=== PATIENT | female | born 1955 | race Caucasian/White ===

== ENCOUNTER 2018-04-22 20:29 | Emergency (ER) | payer BC ==
[~2018-04-22] VITALS: Ht 167.6 cm; Wt 65.8 kg
[~2018-04-22 20:29] MED LIST: ATOR40TA PO; Aspirin PO; FLUO40CA9 PO; IBUP200C9 PO; OMEG1CAP6 PO; SIMV10TA3 PO; WARF6TAB49 PO
[2018-04-22] MEDS ORDERED: IV NORMAL SALINE 1000ML BAG 1,000 ML IV SCH (21:00)
[2018-04-22 21:02] LABS: BASO # 0.1 x10^3/uL (0.0-0.2); BASO % 1 % (0-3); EOS # 0.1 x10^3/uL (0.0-0.7); EOS % 1 % (0-3); HEMATOCRIT 44.2 % (36.0-47.0); HEMOGLOBIN 14.8 g/dL (12.0-15.5); LYMPH # 3.9 x10^3/uL (1.0-4.8); LYMPH % 40 % (24-48); MEAN CORPUSCULAR HEMOGLOBIN 31 pg (25-35); MEAN CORPUSCULAR HGB CONC 34 g/dL (31-37); MEAN CORPUSCULAR VOLUME 93 fL (79-100); MONO # 0.8 x10^3/uL (0.0-1.1); MONO % 8 % (0-9); NEUT % 50 % (31-73); PLATELET COUNT 272 x10^3/uL (140-400); RED BLOOD COUNT 4.77 x10^6/uL (3.50-5.40); RED CELL DISTRIBUTION WIDTH 15.8 % (11.5-14.5); WHITE BLOOD COUNT 9.9 x10^3/uL (4.0-11.0)
[2018-04-22 21:12] LABS: CALCIUM 9.2 mg/dL (8.5-10.1); CREATININE 1.1 mg/dL (0.6-1.0)
[2018-04-22 21:17] LABS: ALBUMIN 3.4 g/dL (3.4-5.0); ALBUMIN/GLOBULIN RATIO 1.1 (1.0-1.7); MAGNESIUM 2.2 mg/dL (1.8-2.4); TOTAL BILIRUBIN 0.5 mg/dL (0.2-1.0); TOTAL PROTEIN 6.4 g/dL (6.4-8.2)
[2018-04-22 21:44] LABS: PROTHROMBIN TIME PATIENT 14.6 SEC (11.7-14.0)
--- NOTE | 2018-04-22 21:50 | RAD ---
PROCEDURE: PORTABLE CHEST 1V CLINICAL INDICATION: Chest pain today COMPARISON: None FINDINGS: No pneumothorax identified. Cardiac and mediastinal contours unremarkable. No pulmonary consolidation or acute airspace disease. No acute osseous abnormalities identified. IMPRESSION: No pulmonary consolidation or acute airspace disease. Electronically signed by: Dewayne Eagle DO (04/22/2018 9:47 PM) [facility]
[2018-04-22 22:00] VITALS: BP 104/58
[2018-04-22] MEDS ORDERED: METH4TAB2 PO (22:01)
--- NOTE | 2018-04-22 22:02 | PHYS DOC ---
Past Medical History Past Medical History: DVT, High Cholesterol Additional Past Medical Histor: pulmonary embolism Past Surgical History: Hysterectomy, Other Additional Past Surgical Histo: colon reconstruction multiple sx Alcohol Use: None Drug Use: None Adult General Chief Complaint Chief Complaint: ABNORMAL LABS [facility] HPI Patient is a 62-year-old female who presents with complaint of midsternal chest pain that started earlier this evening. She describes pain as sharp and stabbing in nature and rates pain as moderate. Patient states that she has history of pulmonary emboli and is on Coumadin. She states that she checked her INR level and found it was low so felt that she should come into the emergency room. Patient states that this is not like when she had pulmonary emboli in the past because the pain was more in her lungs and she felt pain in her back as well. She does indicate that the pain is worsened with deep breathing and with palpation. She denies any nausea, vomiting or diaphoresis. She also denies any lower extremity swelling or pain. Review of Systems Review of Systems Constitutional: Denies fever or chills [] Respiratory: Denies cough or shortness of breath [] Cardiovascular: No additional information not addressed in HPI [] GI: Denies abdominal pain, nausea, vomiting or diarrhea [] Neurologic: Denies headache, focal weakness or sensory changes [] All other systems were reviewed and found to be within normal limits, except as documented in this note. Current Medications Current Medications Current Medications Medications (Trade) Dose Ordered Sig/[facility] Start Time Stop Time Status Last Admin Dose Admin Sodium Chloride 1,000 ml @ 100 mls/hr Q10H 04/22/18 21:00 04/22/18 22:16 DC 04/22/18 21:02 100 MLS/HR Warfarin Sodium (Coumadin) 5 mg 1X ONCE 04/22/18 22:30 04/22/18 22:30 DC 04/22/18 22:11 5 MG Allergies Allergies Allergies Coded Allergies Type Severity Reaction Last Updated Verified No Known Drug Allergies 05/17/13 No Physical Exam Physical Exam Constitutional: Well developed, well nourished, no acute distress, non-toxic appearance. [] HENT: Normocephalic, atraumatic, bilateral external ears normal, oropharynx moist, no oral exudates, nose normal. [] Eyes: PERRLA, EOMI, conjunctiva normal, no discharge. [] Neck: Normal range of motion, no tenderness, supple, no stridor. [] Cardiovascular:Heart rate regular rhythm, no murmur [] Lungs & Thorax: Bilateral breath sounds clear to auscultation [] Abdomen: Bowel sounds normal, soft, no tenderness. [] Skin: Warm, dry, no erythema, no rash. [] Extremities: No tenderness, no cyanosis, no clubbing, ROM intact. [] Neurologic: Alert and oriented X 3, no focal deficits noted. [] Current Patient Data Vital Signs Vital Signs Date Time Temp Pulse Resp B/P (MAP) Pulse Ox O2 Delivery O2 Flow Rate FiO2 04/22/18 22:00 72 14 104/58 (73) 95 Room Air 04/22/18 20:30 98.1 98.1 Lab Values Laboratory Tests Test 04/22/18 20:45 White Blood Count 9.9 x10^3/uL (4.0-11.0) Red Blood Count 4.77 x10^6/uL (3.50-5.40) Hemoglobin 14.8 g/dL (12.0-15.5) Hematocrit 44.2 % (36.0-47.0) Mean Corpuscular Volume 93 fL (79-100) Mean Corpuscular Hemoglobin 31 pg (25-35) Mean Corpuscular Hemoglobin Concent 34 g/dL (31-37) Red Cell Distribution Width 15.8 % (11.5-14.5) H Platelet Count 272 x10^3/uL (140-400) Neutrophils (%) (Auto) 50 % (31-73) Lymphocytes (%) (Auto) 40 % (24-48) Monocytes (%) (Auto) 8 % (0-9) Eosinophils (%) (Auto) 1 % (0-3) Basophils (%) (Auto) 1 % (0-3) Neutrophils # (Auto) 5.0 x10^3uL (1.8-7.7) Lymphocytes # (Auto) 3.9 x10^3/uL (1.0-4.8) Monocytes # (Auto) 0.8 x10^3/uL (0.0-1.1) Eosinophils # (Auto) 0.1 x10^3/uL (0.0-0.7) Basophils # (Auto) 0.1 x10^3/uL (0.0-0.2) Prothrombin Time 14.6 SEC (11.7-14.0) H Prothrombin Time INR 1.2 (0.8-1.1) H D-Dimer (Beckie) < 0.27 ug/mlFEU Sodium Level 143 mmol/L (136-145) Potassium Level 4.0 mmol/L (3.5-5.1) Chloride Level 104 mmol/L (98-107) Carbon Dioxide Level 27 mmol/L (21-32) Anion Gap 12 (6-14) Blood Urea Nitrogen 19 mg/dL (7-20) Creatinine 1.1 mg/dL (0.6-1.0) H Estimated GFR (Cockcroft-Gault) 50.0 BUN/Creatinine Ratio 17 (6-20) Glucose Level 120 mg/dL (70-99) H Calcium Level 9.2 mg/dL (8.5-10.1) Magnesium Level 2.2 mg/dL (1.8-2.4) Total Bilirubin 0.5 mg/dL (0.2-1.0) Aspartate Amino Transferase (AST) 37 U/L (15-37) Alanine Aminotransferase (ALT) 30 U/L (14-59) Alkaline Phosphatase 83 U/L (46-116) Troponin I Quantitative < 0.017 ng/mL (0.000-0.055) XG-Qzh-R-Type Natriuretic Peptide 76 pg/mL (0-124) Total Protein 6.4 g/dL (6.4-8.2) Albumin 3.4 g/dL (3.4-5.0) Albumin/Globulin Ratio 1.1 (1.0-1.7) Laboratory Tests 04/22/18 20:45 Laboratory Tests 04/22/18 20:45 EKG EKG [] Interpretation Time: EKG demonstrates normal sinus rhythm with no ST segment abnormalities. Radiology/Procedures Radiology/Procedures [] Impressions: Chest x-ray demonstrates no acute process. Course & Med Decision Making Course & Med Decision Making Pertinent Labs and Imaging studies reviewed. (See chart for details) [] Dragon Disclaimer Dragon Disclaimer This electronic medical record was generated, in whole or in part, using a voice recognition dictation system. Departure Departure Impression: Primary Impression: Costochondritis Disposition: 01 HOME, SELF-CARE Condition: STABLE Referrals: KATHLEEN CHINCHILLA (PCP) Patient Instructions: Costochondritis Scripts Methylprednisolone (MEDROL) 4 Mg Tab.ds.pk 1 PKG PO UD, #1 PKG Prov: TRANG CHANDLER Jr. DO 04/22/18 TRANG CHANDLER Jr., DO Apr 22, 2018 22:01
[2018-04-22] MEDS ORDERED: WARFARIN 5 MG TABLET. PO ONE (22:30)
--- NOTE | 2018-04-23 06:48 | EKG ---
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
== END 2018-04-22 22:16 | disposition home or self-care (01) ==
LOC: ER 20:29
DX: M94.0 Chondrocostal junction syndrome [Tietze] (principal); M54.9 Dorsalgia, unspecified; E78.00 Pure hypercholesterolemia, unspecified; Z86.711 Personal history of pulmonary embolism; Z86.718 Personal history of other venous thrombosis and embolism; Z79.01 Long term (current) use of anticoagulants; Z90.710 Acquired absence of both cervix and uterus
CPT/HCPCS: 36415; 71045; 80053; 83735; 83880; 84484; 85025; 85379; 85610; 93005; 99284; J7030

== ENCOUNTER 2021-03-20 07:32 | Emergency (ER) | payer MEDICARE, OTHER ==
[~2021-03-20] VITALS: Ht 167.6 cm; Wt 72.7 kg
[2021-03-20 08:29] LABS: BASO # 0.1 x10^3/uL (0.0-0.2); BASO % 1 % (0-3); EOS # 0.1 x10^3/uL (0.0-0.7); EOS % 2 % (0-3); HEMATOCRIT 43.4 % (36.0-47.0); HEMOGLOBIN 14.8 g/dL (12.0-15.5); LYMPH # 1.8 x10^3/uL (1.0-4.8); LYMPH % 25 % (24-48); MEAN CORPUSCULAR HEMOGLOBIN 31 pg (25-35); MEAN CORPUSCULAR HGB CONC 34 g/dL (31-37); MEAN CORPUSCULAR VOLUME 91 fL (79-100); MONO # 0.6 x10^3/uL (0.0-1.1); MONO % 8 % (0-9); NEUT # 4.8 x10^3/uL (1.8-7.7); NEUT % 65 % (31-73); PLATELET COUNT 268 x10^3/uL (140-400); RED BLOOD COUNT 4.75 x10^6/uL (3.50-5.40); RED CELL DISTRIBUTION WIDTH 14.3 % (11.5-14.5); WHITE BLOOD COUNT 7.4 x10^3/uL (4.0-11.0)
[2021-03-20 08:36] LABS: CALCIUM 8.2 mg/dL (8.5-10.1); CREATININE 0.9 mg/dL (0.6-1.0); GFR 62.5; POTASSIUM 4.9 mmol/L (3.5-5.1)
[2021-03-20 08:37] LABS: PROTHROMBIN TIME PATIENT 20.2 SEC (11.7-14.0)
[2021-03-20 08:42] LABS: ALBUMIN 3.5 g/dL (3.4-5.0); TOTAL BILIRUBIN 0.4 mg/dL (0.2-1.0); TOTAL PROTEIN 7.1 g/dL (6.4-8.2)
[2021-03-20] MEDS: IOHEXOL 300 MG/ML 100ML VIAL. IV ONE (09:06)
--- NOTE | 2021-03-20 09:22 | RAD ---
EXAM: Head CT without contrast; chest and abdomen and pelvis CT with intravenous contrast. HISTORY: Fall. Anticoagulation. TECHNIQUE: Computed tomographic images of the head were obtained without contrast. Post contrast imag es of the chest, abdomen and pelvis were also obtained. *One or more of the following individualized dose reduction techniques were utilized for this examina tion: 1. Automated exposure control. 2. Adjustment of the mA and/or kV according to patient size. 3. Use of iterative reconstruction technique. COMPARISON: 11/12/2019. FINDINGS: Head: There is no intracranial hemorrhage. There is no mass effect or midline shift. There is no hydr ocephalus. There are subtle areas of decreased attenuation within the cerebral white matter, likely d ue to chronic small vessel disease in a patient of this age. The visualized orbits, paranasal sinuses and mastoid air cells are unremarkable. There is no suspicious calvarial lesion. Chest: The heart is upper normal in size. There is a dilated ascending aorta measuring 3.9 cm. There is calcified atherosclerotic plaque involving the coronary arteries. There is no mediastinal or hilar lymphadenopathy. There are multiple thyroid nodules. There is no pneumothorax or pleural effusion. T here is bilateral posterior dependent atelectasis. There is mild emphysema. There is no infiltrate or suspicious pulmonary nodule. There is no acute or suspicious osseous finding. There are a few osseou s hemangiomas, the largest of which is seen within T7. Abdomen and pelvis: No hepatic lesion is seen. The gallbladder, pancreas, spleen and adrenal glands a re unremarkable. There is a 7.6 cm simple cyst within the lower pole of the right kidney. There are f ew additional smaller simple appearing cysts within both kidneys. There is a 1.7 cm hypodense lesion within the lateral mid zone of the left kidney which demonstrate attenuation greater than would. Ther e is a similar-appearing 7 mm lesion within the lateral mid zone of the right kidney. These may be co mplicated cyst. There is a suspected 1.7 cm nodule along the posterior lower pole the left kidney. There is no bowel obstruction. There is no abnormal bowel wall thickening. There is evidence of parti al sigmoid resection. There is heavily calcified atherosclerotic plaque involving the aorta and iliac bifurcation. The bladder is unremarkable. The uterus is absent. The left ovary may be absent. The ri ght ovary is unremarkable. There is no lymphadenopathy. There are degenerative changes involving the spine. This is primarily at L4-L5. There is no acute osseous finding. IMPRESSION: 1. No acute intracranial finding or evidence of acute thoracic, abdominal or pelvic trauma. 2. Multiple renal cysts. There are superimposed small echogenic lesions within both kidneys which dem onstrate attenuation greater than simple fluid, possibly due to complicated cysts. There is also a bhandari spected 1.7 cm solid nodule along the posterior lower pole the left kidney, concerning for renal cell carcinoma. These lesions can be further assessed sonographically or with a renal protocol CT or MRI. 3. Mild pulmonary emphysema. 4. Ectatic ascending aorta measuring 3.9 cm. Electronically signed by: Esther Mensah MD (03/20/2021 9:19 AM) [id number]
--- NOTE | 2021-03-20 10:05 | PHYS DOC ---
Past Medical History Past Medical History: DVT, High Cholesterol Additional Past Medical Histor: pulmonary embolism Past Surgical History: Hysterectomy, Other Additional Past Surgical Histo: colon reconstruction multiple sx Smoking Status: Current Every Day Smoker Alcohol Use: None Drug Use: None General Adult EDM: Chief Complaint: RIB PAIN HPI: HPI: Patient is a 65 year old female with history of DVT/PE on warfarin who presents with a fall earlier this morning. Patient with climbing a stair into her bed when she slipped and fell wedging herself between her bed and her nightstand. She hit her right lower ribs on her nightstand. She does not believe that she struck her head. No loss of consciousness. No nausea/vomiting, confusion, or headache. Pain is mainly on the right lower ribs and is worse with deep breaths or movement. Denies any neck pain or upper extremity weakness/paresthesia. No back pain. Denies any injuries to her extremities. Review of Systems: Review of Systems: Constitutional: Denies fever or chills. [] Eyes: Denies change in visual acuity. [] HENT: Denies nasal congestion or sore throat. [] Respiratory: Denies cough or shortness of breath. [] Cardiovascular: Denies chest pain or edema. [] GI: Denies abdominal pain, nausea, vomiting, bloody stools or diarrhea. [] : Denies dysuria. [] Musculoskeletal: Reports right lower rib pain Integument: Denies rash. [] Neurologic: Denies headache, focal weakness or sensory changes. [] Endocrine: Denies polyuria or polydipsia. [] Lymphatic: Denies swollen glands. [] Psychiatric: Denies depression or anxiety. [] Heart Score: C/O Chest Pain: No Current Medications: Current Medications Medications (Trade) Dose Ordered Sig/Janet Start Time Stop Time Status Last Admin Dose Admin Iohexol (Omnipaque 300 Mg/ml) 75 ml 1X ONCE 03/20/21 08:45 03/20/21 08:46 DC 03/20/21 09:06 75 ML Allergies: Allergies: Allergies Coded Allergies Type Severity Reaction Last Updated Verified No Known Drug Allergies 05/17/13 No Physical Exam: PE: Constitutional: Well developed, well nourished, no acute distress, non-toxic appearance. [] HENT: Normocephalic, atraumatic Eyes: PERRLA, EOMI, conjunctiva normal, no discharge. [] Neck: Normal range of motion, no tenderness, supple, no stridor. [] Cardiovascular:Heart rate regular rhythm, no murmur [] Lungs & Thorax: Right lower rib tenderness to palpation. No crepitus or instability felt. There is overlying abrasion to the skin. Bilateral breath sounds clear to auscultation [] Abdomen: RUQ tenderness to palpation. Soft, no guarding, no rigidity. Skin: Warm, dry, no erythema, no rash. [] Back: No tenderness, no CVA tenderness. [] Extremities: No tenderness, no cyanosis, no clubbing, ROM intact, no edema. [] Neurologic: Alert and oriented X 3, normal motor function, normal sensory function, no focal deficits noted. [] Psychologic: Affect normal, judgement normal, mood normal. [] Current Patient Data: Labs: Laboratory Tests Test 03/20/21 08:15 White Blood Count 7.4 x10^3/uL (4.0-11.0) Red Blood Count 4.75 x10^6/uL (3.50-5.40) Hemoglobin 14.8 g/dL (12.0-15.5) Hematocrit 43.4 % (36.0-47.0) Mean Corpuscular Volume 91 fL (79-100) Mean Corpuscular Hemoglobin 31 pg (25-35) Mean Corpuscular Hemoglobin Concent 34 g/dL (31-37) Red Cell Distribution Width 14.3 % (11.5-14.5) Platelet Count 268 x10^3/uL (140-400) Neutrophils (%) (Auto) 65 % (31-73) Lymphocytes (%) (Auto) 25 % (24-48) Monocytes (%) (Auto) 8 % (0-9) Eosinophils (%) (Auto) 2 % (0-3) Basophils (%) (Auto) 1 % (0-3) Neutrophils # (Auto) 4.8 x10^3/uL (1.8-7.7) Lymphocytes # (Auto) 1.8 x10^3/uL (1.0-4.8) Monocytes # (Auto) 0.6 x10^3/uL (0.0-1.1) Eosinophils # (Auto) 0.1 x10^3/uL (0.0-0.7) Basophils # (Auto) 0.1 x10^3/uL (0.0-0.2) Prothrombin Time 20.2 SEC (11.7-14.0) H Prothrombin Time INR 1.8 (0.8-1.1) H Sodium Level 135 mmol/L (136-145) L Potassium Level 4.9 mmol/L (3.5-5.1) Chloride Level 102 mmol/L (98-107) Carbon Dioxide Level 30 mmol/L (21-32) Anion Gap 3 (6-14) L Blood Urea Nitrogen 14 mg/dL (7-20) Creatinine 0.9 mg/dL (0.6-1.0) Estimated GFR (Cockcroft-Gault) 62.5 BUN/Creatinine Ratio 16 (6-20) Glucose Level 114 mg/dL (70-99) H Calcium Level 8.2 mg/dL (8.5-10.1) L Total Bilirubin 0.4 mg/dL (0.2-1.0) Aspartate Amino Transferase (AST) 26 U/L (15-37) Alanine Aminotransferase (ALT) 36 U/L (14-59) Alkaline Phosphatase 80 U/L (46-116) Total Protein 7.1 g/dL (6.4-8.2) Albumin 3.5 g/dL (3.4-5.0) Albumin/Globulin Ratio 1.0 (1.0-1.7) Laboratory Tests 03/20/21 08:15 Laboratory Tests 03/20/21 08:15 Vital Signs: Vital Signs Date Time Temp Pulse Resp B/P (MAP) Pulse Ox O2 Delivery O2 Flow Rate FiO2 03/20/21 07:52 97.5 70 18 148/75 (99) 97 Room Air 97.5 EKG: EKG: [] Radiology/Procedures: Radiology/Procedures: [] Impression: [facility] [address] [place] [address] IMAGING REPORT Signed PATIENT: MACI MCCOY ACCOUNT: [id number] : 1955 LOCATION: ER AGE: 65 SEX: F EXAM STATUS: REG ER ORD. PHYSICIAN: GURWINDER PELAEZ MD REASON: R LOWER RIB PAIN, RUQ ABD TENDERNESS PROCEDURE: CT CHEST ABD PELVIS W/CONTRAST EXAM: Head CT without contrast; chest and abdomen and pelvis CT with intravenous contrast. HISTORY: Fall. Anticoagulation. TECHNIQUE: Computed tomographic images of the head were obtained without contrast. Post contrast images of the chest, abdomen and pelvis were also obtained. *One or more of the following individualized dose reduction techniques were utilized for this examination: 1. Automated exposure control. 2. Adjustment of the mA and/or kV according to patient size. 3. Use of iterative reconstruction technique. COMPARISON: 11/12/2019. FINDINGS: Head: There is no intracranial hemorrhage. There is no mass effect or midline shift. There is no hydrocephalus. There are subtle areas of decreased attenuation within the cerebral white matter, likely due to chronic small vessel disease in a patient of this age. The visualized orbits, paranasal sinuses and mastoid air cells are unremarkable. There is no suspicious calvarial lesion. Chest: The heart is upper normal in size. There is a dilated ascending aorta measuring 3.9 cm. There is calcified atherosclerotic plaque involving the coronary arteries. There is no mediastinal or hilar lymphadenopathy. There are multiple thyroid nodules. There is no pneumothorax or pleural effusion. There is bilateral posterior dependent atelectasis. There is mild emphysema. There is no infiltrate or suspicious pulmonary nodule. There is no acute or suspicious osseous finding. There are a few osseous hemangiomas, the largest of which is seen within T7. Abdomen and pelvis: No hepatic lesion is seen. The gallbladder, pancreas, spleen and adrenal glands are unremarkable. There is a 7.6 cm simple cyst within the lower pole of the right kidney. There are few additional smaller simple appearing cysts within both kidneys. There is a 1.7 cm hypodense lesion within the lateral mid zone of the left kidney which demonstrate attenuation greater than would. There is a similar-appearing 7 mm lesion within the lateral mid zone of the right kidney. These may be complicated cyst. There is a suspected 1.7 cm nodule along the posterior lower pole the left kidney. There is no bowel obstruction. There is no abnormal bowel wall thickening. There is evidence of partial sigmoid resection. There is heavily calcified atherosclerotic plaque involving the aorta and iliac bifurcation. The bladder is unremarkable. The uterus is absent. The left ovary may be absent. The right ovary is unremarkable. There is no lymphadenopathy. There are degenerative changes involving the spine. This is primarily at L4-L5. There is no acute osseous finding. IMPRESSION: 1. No acute intracranial finding or evidence of acute thoracic, abdominal or pelvic trauma. 2. Multiple renal cysts. There are superimposed small echogenic lesions within both kidneys which demonstrate attenuation greater than simple fluid, possibly due to complicated cysts. There is also a suspected 1.7 cm solid nodule along the posterior lower pole the left kidney, concerning for renal cell carcinoma. These lesions can be further assessed sonographically or with a renal protocol CT or MRI. 3. Mild pulmonary emphysema. 4. Ectatic ascending aorta measuring 3.9 cm. Electronically signed by: Esther Bobby MD (03/20/2021 9:19 AM) [id number] DICTATED and SIGNED BY: ESTHER BOBBY MD DATE: 03/20/21 [id number] Course & Med Decision Making: Course & Med Decision Making Pertinent Labs and Imaging studies reviewed. (See chart for details) Patient 65-year-old female with history of DVT/PE on warfarin who presents with mechanical fall striking her right ribs. On arrival is vitally stable, well-appearing on exam. She did have significant right lower rib tenderness as well as right upper quadrant tenderness concerning for rib and potentially underlying organ injury. CT imaging of the chest/abdomen/pelvis was obtained that did not show any acute traumatic injuries. Given her anticoagulation status a CT of the head was also obtained and was negative. CT did find incidental findings of bilateral renal cyst, left 1.7 cm solid renal mass concerning for potential renal cell carcinoma as well as aortic ectasia to 3.9 cm. INR 1.8 These incidental findings were explained to the patient and the need for further work-up was emphasized. Patient will be referred to urology and asked to follow-up with her PCP for further evaluation. Dragon Disclaimer: Dragon Disclaimer: This electronic medical record was generated, in whole or in part, using a voice recognition dictation system. Departure Departure Impression: Primary Impression: Contusion of rib on right side Additional Impressions: Left renal mass Bilateral renal cysts Aortic ectasia, abdominal Disposition: HOME / SELF CARE / HOMELESS Condition: STABLE Referrals: KATHLEEN CHINCHILLA (PCP) Schedule follow-up appointment with your PCP to discuss the findings on your CT scan. LONG SANCHEZ MD Follow-up with the urologist to evaluate the mass on your left kidney more closely. Additional Instructions: Your CT scans did not show any injuries from your fall today. They did find several things incidentally that need to be followed up with your PCP and a urology (kidney) specialist. 1. Both your kidneys had several cysts on them 2. Your left kidney had a 1.7 cm more solid mass that is concerning for kidney cancer and will need further testing to determine what is going on. 3. Your aorta (the major blood vessel in the body) is slightly enlarged to 3.9 cm. This will need to be monitored to ensure it is not growing. GURWINDER PELAEZ MD Mar 20, 2021 10:05
[2021-03-20 10:17] VITALS: BP 147/83
== END 2021-03-20 10:18 | disposition home or self-care (01) ==
LOC: ER 07:32
DX: S20.211A Contusion of right front wall of thorax, initial encounter (principal); F17.200 Nicotine dependence, unspecified, uncomplicated; Z86.718 Personal history of other venous thrombosis and embolism; E78.00 Pure hypercholesterolemia, unspecified; Z86.711 Personal history of pulmonary embolism; W01.0XXA Fall on same level from slipping, tripping and stumbling without subsequent striking against object, initial encounter; Y93.89 Activity, other specified; Y92.89 Other specified places as the place of occurrence of the external cause; Y99.8 Other external cause status
CPT/HCPCS: 36415; 70450; 71260; 74177; 80053; 85025; 85610; 99285; Q9967

== ENCOUNTER → 2021-03-20 | Emergency (ER) | payer MEDICARE, OTHER ==
[~2021-03-20] MED LIST changes: +METH4TAB2 PO; +SIMV10TA15 PO; -SIMV10TA3 PO
[2021-03-20 10:17] VITALS: BP 147/83
== END | disposition left against medical advice (07) ==
LOC: ER 20:40
DX: R52 Pain, unspecified (principal); Z53.21 Procedure and treatment not carried out due to patient leaving prior to being seen by health care provider

== ENCOUNTER 2021-06-14 07:50 | Emergency (ER) | payer MEDICARE, OTHER ==
[~2021-06-14] VITALS: Ht 167.6 cm; Wt 79.5 kg
[2021-06-14 08:27] LABS: BASO # 0.1 x10^3/uL (0.0-0.2); BASO % 1 % (0-3); EOS # 0.1 x10^3/uL (0.0-0.7); EOS % 1 % (0-3); HEMATOCRIT 39.6 % (36.0-47.0); HEMOGLOBIN 13.6 g/dL (12.0-15.5); LYMPH # 1.6 x10^3/uL (1.0-4.8); LYMPH % 22 % (24-48); MEAN CORPUSCULAR HEMOGLOBIN 31 pg (25-35); MEAN CORPUSCULAR HGB CONC 34 g/dL (31-37); MEAN CORPUSCULAR VOLUME 91 fL (79-100); MONO # 0.7 x10^3/uL (0.0-1.1); MONO % 9 % (0-9); NEUT # 5.1 x10^3/uL (1.8-7.7); NEUT % 67 % (31-73); PLATELET COUNT 276 x10^3/uL (140-400); RED BLOOD COUNT 4.37 x10^6/uL (3.50-5.40); RED CELL DISTRIBUTION WIDTH 14.1 % (11.5-14.5); WHITE BLOOD COUNT 7.7 x10^3/uL (4.0-11.0)
[2021-06-14] MEDS ORDERED: KETOROLAC 15 MG/ML VIAL. IVP ONE (08:30)
[2021-06-14 08:40] LABS: CREATININE 0.9 mg/dL (0.6-1.0); GFR 62.5; POTASSIUM 3.8 mmol/L (3.5-5.1)
--- NOTE | 2021-06-14 08:42 | RAD ---
EXAM: XR CHEST 1V 06/14/2021 8:24 AM CLINICAL INDICATION: Chest pain COMPARISON: Chest radiograph 04/22/2018 TECHNIQUE: AP view of the chest FINDINGS: The heart is normal in size. Lungs are adequately expanded. There is minimal atelectasis i n the left lung base. No consolidation, pleural effusion, or pneumothorax. Mild thoracic scoliosis. IMPRESSION: No acute cardiopulmonary abnormality. Electronically signed by: Altagracia Perales MD (06/14/2021 8:40 AM) [id number]
[2021-06-14 08:44] LABS: ALBUMIN 3.3 g/dL (3.4-5.0); ALBUMIN/GLOBULIN RATIO 0.9 (1.0-1.7); TOTAL BILIRUBIN 1.2 mg/dL (0.2-1.0); TOTAL PROTEIN 7.1 g/dL (6.4-8.2)
--- NOTE | 2021-06-14 09:02 | EKG ---
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
[2021-06-14 09:03] LABS: BACTERIA,URINE FEW /HPF (0-FEW); WBC,URINE OCC /HPF (0-4)
--- NOTE | 2021-06-14 09:51 | PHYS DOC ---
Past Medical History Past Medical History: DVT, High Cholesterol Additional Past Medical Histor: pulmonary embolism,ocd,renal cysts Past Surgical History: Hysterectomy, Other Additional Past Surgical Histo: colon reconstruction multiple sx Smoking Status: Former Smoker Alcohol Use: None Drug Use: None General Adult EDM: Chief Complaint: CHEST PAIN HPI: HPI: Patient is a 65 year old 65-year-old female presents to the ER with 2 days of URI symptoms. Patient states that she has had a nonproductive cough. Patient presents today with left-sided chest pain that gets worse with a cough. Denies any radiation chest pain denies any shortness of breath. Denies any diaphoresis. Patient does have a family history of heart disease but does not have diabetes hypertension does not smoke. Review of Systems: Review of Systems: Constitutional: Denies fever or chills. [] Eyes: Denies change in visual acuity. [] HENT: Sinus congestion denies sore throat Respiratory: Dry cough no shortness of breath [] Cardiovascular: Chest wall pain secondary to cough GI: Denies abdominal pain, nausea, vomiting, bloody stools or diarrhea. [] : Denies dysuria. [] Musculoskeletal: Denies back pain or joint pain. [] Integument: Denies rash. [] Neurologic: Denies headache, focal weakness or sensory changes. [] Endocrine: Denies polyuria or polydipsia. [] Lymphatic: Denies swollen glands. [] Psychiatric: Denies depression or anxiety. [] Heart Score: C/O Chest Pain: Yes HEART Score for Chest Pain: HEART Score for Chest Pain Response (Comments) Value History Slighlty/Non-Suspicious 0 ECG Normal 0 Age > 65 2 Risk Factors 1 or 2 Risk Factors 1 Troponin < Normal Limit 0 Total 3 Risk Factors: Risk Factors: DM, Current or recent (<one month) smoker, HTN, HLP, family history of CAD, obesity. Risk Scores: Score 0 - 3: 2.5% MACE over next 6 weeks - Discharge Home Score 4 - 6: 20.3% MACE over next 6 weeks - Admit for Clinical Observation Score 7 - 10: 72.7% MACE over next 6 weeks - Early Invasive Strategies Current Medications: Current Medications Medications (Trade) Dose Ordered Sig/Janet Start Time Stop Time Status Last Admin Dose Admin Ketorolac Tromethamine (Toradol 15mg Vial) 15 mg 1X ONCE 06/14/21 08:30 06/14/21 08:31 DC 06/14/21 08:31 15 MG Allergies: Allergies: Allergies Coded Allergies Type Severity Reaction Last Updated Verified No Known Drug Allergies 05/17/13 No Physical Exam: PE: Constitutional: Well developed, well nourished, no acute distress, non-toxic appearance. [] HENT: Normocephalic, atraumatic, bilateral external ears normal, oropharynx moist, no oral exudates, nose normal. [] Eyes: PERRLA, EOMI, conjunctiva normal, no discharge. [] Neck: Normal range of motion, no tenderness, supple, no stridor. [] Cardiovascular:Heart rate regular rhythm, no murmur [] Lungs & Thorax: Bilateral breath sounds clear to auscultation [] Abdomen: Bowel sounds normal, soft, no tenderness, no masses, no pulsatile masses. [] Skin: Warm, dry, no erythema, no rash. [] Back: No tenderness, no CVA tenderness. [] Extremities: No tenderness, no cyanosis, no clubbing, ROM intact, no edema. [] Neurologic: Alert and oriented X 3, normal motor function, normal sensory function, no focal deficits noted. [] Psychologic: Affect normal, judgement normal, mood normal. [] Current Patient Data: Labs: Laboratory Tests Test 06/14/21 08:19 06/14/21 08:36 White Blood Count 7.7 x10^3/uL (4.0-11.0) Red Blood Count 4.37 x10^6/uL (3.50-5.40) Hemoglobin 13.6 g/dL (12.0-15.5) Hematocrit 39.6 % (36.0-47.0) Mean Corpuscular Volume 91 fL (79-100) Mean Corpuscular Hemoglobin 31 pg (25-35) Mean Corpuscular Hemoglobin Concent 34 g/dL (31-37) Red Cell Distribution Width 14.1 % (11.5-14.5) Platelet Count 276 x10^3/uL (140-400) Neutrophils (%) (Auto) 67 % (31-73) Lymphocytes (%) (Auto) 22 % (24-48) L Monocytes (%) (Auto) 9 % (0-9) Eosinophils (%) (Auto) 1 % (0-3) Basophils (%) (Auto) 1 % (0-3) Neutrophils # (Auto) 5.1 x10^3/uL (1.8-7.7) Lymphocytes # (Auto) 1.6 x10^3/uL (1.0-4.8) Monocytes # (Auto) 0.7 x10^3/uL (0.0-1.1) Eosinophils # (Auto) 0.1 x10^3/uL (0.0-0.7) Basophils # (Auto) 0.1 x10^3/uL (0.0-0.2) Sodium Level 137 mmol/L (136-145) Potassium Level 3.8 mmol/L (3.5-5.1) Chloride Level 102 mmol/L (98-107) Carbon Dioxide Level 25 mmol/L (21-32) Anion Gap 10 (6-14) Blood Urea Nitrogen 14 mg/dL (7-20) Creatinine 0.9 mg/dL (0.6-1.0) Estimated GFR (Cockcroft-Gault) 62.5 BUN/Creatinine Ratio 16 (6-20) Glucose Level 107 mg/dL (70-99) H Calcium Level 9.0 mg/dL (8.5-10.1) Total Bilirubin 1.2 mg/dL (0.2-1.0) H Aspartate Amino Transferase (AST) 18 U/L (15-37) Alanine Aminotransferase (ALT) 24 U/L (14-59) Alkaline Phosphatase 83 U/L (46-116) Troponin I High Sensitivity 6 ng/L (4-50) Total Protein 7.1 g/dL (6.4-8.2) Albumin 3.3 g/dL (3.4-5.0) L Albumin/Globulin Ratio 0.9 (1.0-1.7) L Lipase 112 U/L (73-393) Urine Collection Type Unknown Urine Color (Auto) Light yellow Urine Turbidity Clear Urine pH (Auto) 5.5 (<5.0-8.0) Urine Specific Bloomer 1.019 (1.000-1.030) Urine Protein (Auto) Negative mg/dL (Negative) Urine Glucose (Auto)(UA) Negative mg/dL (Negative) Urine Ketones (Auto) Negative mg/dL (Negative) Urine Blood (Auto) Small (Negative) Urine Nitrite Negative (Negative) Urine Bilirubin (Auto) Negative (Negative) Urine Urobilinogen (Auto) Normal mg/dL (Normal) Urine Leukocyte Esterase (Auto) Small (Negative) Urine RBC 3-5 /HPF (0-2) Urine WBC Occ /HPF (0-4) Urine Squamous Epithelial Cells Few /LPF Urine Bacteria Few /HPF (0-FEW) Laboratory Tests 06/14/21 08:19 Laboratory Tests 06/14/21 08:19 Vital Signs: Vital Signs Date Time Temp Pulse Resp B/P (MAP) Pulse Ox O2 Delivery O2 Flow Rate FiO2 06/14/21 08:40 67 22 109/68 (82) 96 Room Air 06/14/21 08:13 97.8 97.8 EKG: EKG: [] Patient is a normal sinus rhythm with a heart rate of 65 QTC of 448. No evidence of ischemic changes. Radiology/Procedures: Radiology/Procedures: [] EXAM: XR CHEST 1V 06/14/2021 8:24 AM CLINICAL INDICATION: Chest pain COMPARISON: Chest radiograph 04/22/2018 TECHNIQUE: AP view of the chest FINDINGS: The heart is normal in size. Lungs are adequately expanded. There is minimal atelectasis in the left lung base. No consolidation, pleural effusion, or pneumothorax. Mild thoracic scoliosis. IMPRESSION: No acute cardiopulmonary abnormality. Electronically signed by: Altagracia Perales MD (06/14/2021 8:40 AM) [id number] Course & Med Decision Making: Course & Med Decision Making Pertinent Labs and Imaging studies reviewed. (See chart for details) [] Patient was reevaluated and states that she feels much better return precautions were discussed. Patient feels comfortable discharge and follow-up. Dragon Disclaimer: Dragon Disclaimer: This electronic medical record was generated, in whole or in part, using a voice recognition dictation system. Patient was given strict return precautions and labs and x-rays reviewed. Patient states that she feels much better. Departure Departure Referrals: KATHLEEN CHINCHILLA (PCP) CLARE DENTON DO Jun 14, 2021 09:51
[2021-06-14 11:05] VITALS: BP 124/65
[2021-06-14] MEDS ORDERED: CYCL5TAB PO (11:12)
[2021-06-14] MEDS ORDERED: DEXAMETHASONE SOD PHOS 20 MG/5 ML VIAL. IV ONE (11:15)
== END 2021-06-14 11:27 | disposition home or self-care (01) ==
LOC: ER 07:50
DX: R07.89 Other chest pain (principal); R05.9 Cough, unspecified; R09.81 Nasal congestion; E78.00 Pure hypercholesterolemia, unspecified; Z20.822 Contact with and (suspected) exposure to COVID-19; Z86.718 Personal history of other venous thrombosis and embolism; Z86.711 Personal history of pulmonary embolism
CPT/HCPCS: 36415; 71045; 80053; 81001; 83690; 84484; 85025; 87086; 87147; 87426; 93005; 96374; 96375; 99285; J1100; J1885